=== PATIENT | male | born 1970 | race Caucasian/White ===

== ENCOUNTER 2020-11-21 16:31 | Emergency (ER) | payer MEDICAID, OTHER ==
[~2020-11-21] VITALS: Ht 177.8 cm; Wt 81.6 kg
--- NOTE | 2020-11-21 17:00 | NUR ---
at bedside for assessment
[2020-11-21] MEDS ORDERED: NAPROXEN 500 MG TABLET ONE (17:25)
[2020-11-21] MEDS ORDERED: NAPROXEN 500 MG TABLET PO ONE (17:30)
[2020-11-21] MEDS ORDERED: NAPR-1192 PO (18:42)
[2020-11-21] MEDS ORDERED: KETOROLAC TROMETHAMINE 15 MG INJ IM ONE (19:00)
--- NOTE | 2020-11-21 19:18 | NUR ---
Patient discharged to home in stable condition. Patient noted walking with steady gait, no signs of acute distress `noted. Written and verbal after care instructions given. Patient verbalizes understanding of instructions. Stressed follow up or return to ER for worsening s/s.
[2020-11-21] MEDS ORDERED: KETOROLAC TROMETHAMINE 15 MG INJ ONE (19:19)
[2020-11-21 19:20] VITALS: BP 140/73
== END 2020-11-21 19:21 | disposition home or self-care (01) ==
LOC: ER 16:33
DX: S13.4XXA Sprain of ligaments of cervical spine, initial encounter (principal); V43.52XA Car driver injured in collision with other type car in traffic accident, initial encounter; Y92.410 Unspecified street and highway as the place of occurrence of the external cause; M25.512 Pain in left shoulder; Z98.1 Arthrodesis status; E04.2 Nontoxic multinodular goiter
CPT/HCPCS: 71045; 72125; 73030; 96372; 99284; J1885; A4663